=== PATIENT | male | born 1970 | race Two or more races ===

== ENCOUNTER 2024-10-04 07:38 | Day surgery (SDC) | payer OTHER ==
[2024-10-04 10:44] VITALS: BMI 28.3
[2024-10-04 12:23] VITALS: TEMP 97.5
[2024-10-04 13:04] VITALS: BP 110/62; PULSE 65; RESP 17
== END 2024-10-04 13:20 | disposition home or self-care (01) ==
LOC: JASU-ENDO 07:38
PROVIDERS: ATTEND Internal Medicine Gastroenterology
PROC: 0DB98ZX Excision of Duodenum, Via Natural or Artificial Opening Endoscopic, Diagnostic (ICD-10-PCS; 2024-10-04)
PROC: 0DB78ZX Excision of Stomach, Pylorus, Via Natural or Artificial Opening Endoscopic, Diagnostic (ICD-10-PCS; 2024-10-04)
PROC: 0DB68ZX Excision of Stomach, Via Natural or Artificial Opening Endoscopic, Diagnostic (ICD-10-PCS; 2024-10-04)
PROC: 0DBB8ZX Excision of Ileum, Via Natural or Artificial Opening Endoscopic, Diagnostic (ICD-10-PCS; principal; 2024-10-04 11:00)
DX: K64.8 Other hemorrhoids (principal); D12.0 Benign neoplasm of cecum
CPT/HCPCS: 88305-TC; 88342-TC